=== PATIENT | female | born 1960 | race Caucasian/White ===

== ENCOUNTER → 2019-12-07 | Outpatient (CLI) | payer SELFPAY ==
--- NOTE | 2019-12-07 11:23 | Diagnostic Imaging Report ---
Examination: MRI SPINE CERVICAL WO CONTRAST History: Left arm numbness and burning. Comparison studies: None Technique: Sagittal T1, T2 and IR, axial T2 and axial gradient echo intravenous contrast: None Findings: Alignment: Straightening of normal lordosis. No scoliosis. Cervicomedullary junction: No abnormalities. Patent foramen magnum. Soft tissues: No T2 hyperintense inflammatory changes. Spinal cord: Normal in size and signal from the foramen magnum through T1. Vertebrae: No fractures, infection or neoplasm. Degenerative changes: C1-C2: No abnormalities. C2-C3: No abnormalities. C3-C4: Left central disc protrusion superimposed on and asymmetric to the left disc osteophyte complex and bilateral uncovertebral arthropathy result in mild left neural foraminal narrowing. No canal or right foraminal stenosis. The left central disc protrusion contacts the left ventral cord without intrinsic cord signal abnormality. C4-C5: Diffuse disc osteophyte complex and bilateral uncovertebral arthropathy result in severe bilateral neural foraminal narrowing. No canal stenosis. C5-C6: Diffuse disc osteophyte complex and bilateral uncovertebral arthropathy result in moderate bilateral neural foraminal narrowing and mild canal stenosis. C6-C7: Diffuse disc bulge superimposed on an asymmetric to the left disc osteophyte complex and bilateral uncovertebral arthropathy result in mild right and severe left neural foraminal narrowing and mild canal stenosis. C7-T1: No abnormalities. IMPRESSION: 1. Degenerative disc changes from C3-C4 through C6-C7 with mild canal stenosis at C5-C6 and C6-C7. 2. Severe bilateral foraminal narrowing at C4-C5 and severe left neural foraminal at C6-C7. Moderate bilaterally at C5-C6. Signed by: Dr. Amy Guerrier M.D. on 12/07/2019 11:20 AM
== END ==
LOC: MRI 08:37
PROVIDERS: ATTEND Physician Assistant
DX: M54.12 Radiculopathy, cervical region (principal)
CPT/HCPCS: 72141